=== PATIENT | male | born 1985 | race Caucasian/White ===

== ENCOUNTER 2019-05-14 09:20 | Outpatient (CLI) | payer OTHER ==
[2019-05-14 15:25] LABS: #Basophils 0.1 thou/uL (0.0-0.2); #Eosinphils 0.2 thou/uL (0.0-0.7); #Lymphocytes 2.2 thou/uL (1.20-3.40); #Monocytes 0.5 thou/uL (0.11-0.59); #Neutrophils 3.1 thou/uL (1.40-6.50); %Basophils 1.3 % (0.0-1.0); %Eosinophils 3.3 % (0.0-10.0); %Lymphocytes 36.9 % (21.0-51.0); %Monocytes 7.9 % (0.0-10.0); %Neutrophils 50.6 % (42.0-75.0); Hemoglobin 14.9 g/dL (14.0-18.0); Mean Corpuscular HGB CONC 34.1 g/dL (32.0-36.0); Mean Corpuscular Hemoglobin 30.7 pg (27.0-31.0); Mean Corpuscular Volume 90.1 fL (78.0-98.0); Platelet Count 118 thou/uL (130-400); RBC Distribution Width 11.1 % (11.5-14.5); Red Blood Cell (RBC) Count 4.86 mill/uL (4.70-6.10); White Blood Cell (WBC) Count 6.1 thou/uL (4.8-10.8)
== END 2019-05-14 09:21 | disposition home or self-care (01) ==
LOC: LABBT 09:20
PROVIDERS: ATTEND Orthopaedic Surgery Hand Surgery
DX: Z01.812 Encounter for preprocedural laboratory examination (principal); M25.331 Other instability, right wrist
CPT/HCPCS: 85025

== ENCOUNTER → 2019-05-18 | Day surgery (SDC) | payer OTHER ==
[2019-05-14 14:47] VITALS: BMI 24.3
[~2019-05-18] MED LIST: Bacitracin Zinc Ointment 30 gm TUBE ONE; Betamet Acet/Betamet Na Ph 30 MG/5 ML VIAL ONE; Bupivacaine HCl 0.5%/Epinephrine 1:200,000/PF 30 ml Vial ONE; Bupivacaine PF 0.5% 30 ML VIAL ONE; Dexamethasone 20 MG/5 ML VIAL ONE; EPINEPHrine 1 MG/ML AMP ONE; Fentanyl 100 MCG/2 ML VIAL ONE; Ketorolac Tromethamine 30 MG/ML VIAL ONE; Lidocaine 1% PF 5 ML VIAL ONE; Midazolam HCl 2 mg/2 ml Vial ONE; Ondansetron PF 4 MG/2 ML Vial ONE; PHENYLEPHRINE-NS 100 MCG/ML 10 ML SYRINGE ONE; PROPOFOL 200 MG/20 ML VIAL ONE; Scopolamine 1.5 mg/72 hour Patch ONE; Scopolamine 1.5 mg/72 hour Patch TOP SCH; Sodium Chloride 0.9% 10 ML ONE; ePHEDrine 50 MG/ML VIAL ONE
--- NOTE | 2019-05-18 17:56 | RAD ---
Exam: XR Wrist Rt 2 View HISTORY: ORIF right wrist. COMPARISON: None FINDINGS: 5 intraoperative fluoroscopic images of the right wrist are submitted for interpretation. Provided images demonstrates surgical measurements overlying the wrist with pins transfixing the carp al bones with what appears to be small screws overlying the proximal pole scaphoid bone and lunate bone. A transversely oriented metallic pin overlies the proximal pole scaphoid bone and lunate bone a s well as transversely oriented pin overlying the distal pole scaphoid bone and base of the capitate bone. There is also a more vertically oriented pin overlying the capitate and lunate bone. C orrelation with intraoperative findings is recommended. Fluoroscopy: Time-1 minute 15 seconds with a cumulative dose of 1.07 mGy IMPRESSION: No acute osseous abnormality is identified.
--- NOTE | 2019-05-19 10:15 | OP ---
DATE OF PROCEDURE: 05/18/2019 PREOPERATIVE DIAGNOSES: 1. Scapholunate interosseous membrane tear with instability, midcarpal and early dorsal intercalated instability. 2. Chondral lesion, of the scaphoid almost it is periarticular to the scapholunate articulation 5 mm long by 2 mm wide indicative of avulsion of the ligament. POSTOPERATIVE DIAGNOSES: 1. Scapholunate interosseous membrane tear with instability, midcarpal and early dorsal intercalated instability. 2. Chondral lesion, of the scaphoid almost it is periarticular to the scapholunate articulation 5 mm long by 2 mm wide indicative of avulsion of the ligament. PROCEDURES PERFORMED: 1. C-arm use. 2. Arthroscopic wrist diagnostic procedure. 3. Modified Brunelli flexor carpi radialis transfer for scapholunate ligament augmentation and scapholunate interosseous membrane reconstruction, lunate retained portion back to the scaphoid. TOURNIQUET TIME: Would be 2 hours. BLOOD LOSS: Less than 100 mL. 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 He had clinical and radiographic and MRI findings of scapholunate interosseous membrane tear which is at least 3-to 4-month-old at this point. He has failed conservative treatment. I was seen as a 2nd or 3rd opinion and as I instructed the patient both the time of visits and now preop that he will probably lose some motion and will probably be unable to perform pushups in the standard front lean rest, having to do them now on his fist with the wrist in neutral. He understood this and that there is also risk of failure. He agreed to proceed. DESCRIPTION OF PROCEDURE: The patient then had undergone general anesthesia by [facility], the limb was prepped. Time-out was done appropriately as the limb was being prepped and draped. His wrist was initially placed in an arthroscopic tower and he had standard 3/4, 6U and 6R portals established. Panoramic view revealed complete drive through the scope into the midcarpal joint where we found there was no evidence of capitate lesion, but we could see a small chondral loss that was near complete of the ulna and of the scaphoid where the scapholunate ligament was absent. There was 2 mm to 3 mm of ligament width occupying the dorsal half of the lunate, except for the very dorsal 5 mm. Here, there was a small amount of remnant still on the scaphoid. For this reason, it was felt that he needed scapholunate reconstruction and augmentation with the flexor carpi radialis tendon using a modified Valentina technique as outlined by Dr. Greer. First, we removed the arthroscope. We then exsanguinated the limb, inflated the tourniquet to 250 mmHg pressure and then using the 3/4 portal, made extended zigzag incision, carried through the skin and subcutaneous tissue. We then isolated the extensor pollicis longus, entered the junction between the 3rd and 4th dorsal compartments and sent the extensor pollicis longus radial and the 4th compartment extensors ulnarly. This exposed the capsule. We then made a capsule flap allowing us to see the joint and then taken the capsule leaving the radial based portion. Immediately underneath, we could see the tear of the scapholunate ligament with the just as seen on the scope almost 1 cm long band of the dorsal one half of the scapholunate ligament that was 3 mm wide at its widest and 2 mm at least as most narrow still on the lunate and intact while of the scaphoid and then there was a 2-to 3-mm wide strip through the dorsal aspect of scaphoid that did come off the lunate. For this reason, we prepared a trough on the scaphoid that was 2.5 mm wide, 2 mm deep and 1 cm long to accommodate this band from the lunate for reconstruction. We did the same thing on the dorsal aspect of the lunate. We also placed heavy anchors, with a suture, 2 on the scaphoid, 1 on the lunate for this reconstruction later. We used joysticks of 0.045 K-wires to get rid of the dorsal intercalated instability by palmar flexing the lunate and dorsiflexing the scaphoid. We used the same orientation to help with and then performed a drill hole from dorsal to palmar centered at the junction of the proximal and mid third of the scaphoid and then in the frontal plane, a sagittal plane coming out on the palmar aspect obliquely to allow for more correction of the scaphoid back to the lunate. We then finished drilling the hole 1st with a 2.5 drill bit over the guidewire and then a 3.5 drill bit over the guidewire and it was excellent rim of these 3 mm on either side of the tunnel. We then turned to the palmar side, made an incision down to the base of flexor carpi radialis, opened the sheath, retracted the FCR and then visualized the spot for the drilling and completed the drilling. We then had released the scaphoid capsule. Then, we made 3 incisions to harvest the flexor carpi radialis in radial half, brought it into each incision to visually maintain its width, placed a 22-gauge wire from dorsal to palmar, put a 4-0 Prolene on the end of the FCR radial half's path and brought it from palmar to dorsal onto the scaphoid. Then, we used the same joysticks to reduce along with a heavy 399.9 the scapholunate interval in 45 degrees of scapholunate angle and approximately 5 degrees capitate lunate angle. Once we had done this, we used a triangle pinning pattern of the distal portion of the scaphoid, distal to the hole for the FCR in the capitate, proximal to that hole we placed a wire into the lunate, and then from the capitate midportion into midportion of lunate, we placed a wire. Now, we had completely reduced anatomically the scapholunate interval as well as corrected all intercalated instability. At this point, we then 1st tied the sutures already had been placed in the scapholunate ligament to bring the lunate portion back into the trough with the 2 heavy anchor sutures (micro anchors, not mini) and using same the micro anchor, we used this to help realign both the flexor carpi radialis tendon, then the tendon was placed into the capsular flap and lunotriquetral ligament on the ulnar side of the lunate, cinched underneath the capitate and midcarpal ligament and then sutured at all 3 places with maximal tension. This gave nearly a guitar string type tension, which would be appropriate for healing. We then tied it on itself on the radial aspect of scapholunate ligament with a heavy 3-0 Prolene suture. We released the tourniquet and obtained hemostasis. We then brought the capsular flap back after obtaining hemostasis and repaired it without undue tension using an interrupted 3-0 Prolene. We then closed the retinaculum with an interrupted 2-0 Vicryl, before we close the capsule, closed the skin, we cut the capitate wire down with only 1 mm protruding from the bone and then cut the two other wires from the triangulation technique with 1 mm under the skin, but still palpable. We obtained hemostasis subcutaneously and closed the skin on the dorsum with a running 3-0 Monocryl and had excellent reproduction of the closure, so we then placed Steri-Strips. On the palmar side, we closed the scaphoid capsule with interrupted 2-0 Vicryl, we repaired the distal portion of the FCR sheath with the same Vicryl, subcutaneous closure of all the incisions were closed with 4-0 Monocryl in a running fashion and then we used 4-0 nylon for the epidermal closure on the forearm and Steri-Strips on the wrist. Bulky dressing was applied with a sugar-tong splint and the patient left the operating room without evidence of anesthetic or operative complication. Radiographs showed maintained anatomic position with the wires cut. Job ID: [id number]
--- NOTE | 2019-05-21 10:09 | EKG ---
Test Reason : PREOP Blood Pressure : / mmHG Vent. Rate : 068 BPM Atrial Rate : 068 BPM P-R Int : 152 ms QRS Dur : 108 ms QT Int : 446 ms P-R-T Axes : 028 095 041 degrees QTc Int : 474 ms Normal sinus rhythm Rightward axis Borderline ECG No previous ECGs available Confirmed by CY SALDANA, SHUBHAM ([id number]) on 05/21/2019 10:08:59 AM Referred By: OBINNA Confirmed By:SHUBHAM BENOIT MD
== END ==
LOC: SDC 09:10
PROVIDERS: ATTEND Orthopaedic Surgery Hand Surgery
PROC: 0RQN4ZZ Repair Right Wrist Joint, Percutaneous Endoscopic Approach (ICD-10-PCS; principal; 2019-05-18)
PROC: 3E0T3BZ Introduction of Anesthetic Agent into Peripheral Nerves and Plexi, Percutaneous Approach (ICD-10-PCS; principal; 2019-05-18)
PROC: 0LX Tendons, Transfer (ICD-10-PCS; principal; 2019-05-18)
DX: M25.331 Other instability, right wrist (principal); S63.511A Sprain of carpal joint of right wrist, initial encounter; G89.18 Other acute postprocedural pain
CPT/HCPCS: 76000; 93005; 93010; C1713; J0131; J0171; J0690; J0702; J1885; J2250; J2405; J3010; J3490; S0020

== ENCOUNTER 2019-07-12 13:51 | Day surgery (SDC) | payer OTHER ==
[2019-07-09 16:02] VITALS: BMI 26.4
[~2019-07-12 13:51] MED LIST changes: -Bacitracin Zinc Ointment 30 gm TUBE ONE; -Betamet Acet/Betamet Na Ph 30 MG/5 ML VIAL ONE; -Bupivacaine HCl 0.5%/Epinephrine 1:200,000/PF 30 ml Vial ONE; -Bupivacaine PF 0.5% 30 ML VIAL ONE; -Dexamethasone 20 MG/5 ML VIAL ONE; -EPINEPHrine 1 MG/ML AMP ONE; -Fentanyl 100 MCG/2 ML VIAL ONE; -Midazolam HCl 2 mg/2 ml Vial ONE; -PHENYLEPHRINE-NS 100 MCG/ML 10 ML SYRINGE ONE; -Scopolamine 1.5 mg/72 hour Patch ONE; -Scopolamine 1.5 mg/72 hour Patch TOP SCH; -Sodium Chloride 0.9% 10 ML ONE; -ePHEDrine 50 MG/ML VIAL ONE
[2019-07-12] MEDS ORDERED: Sodium Chloride 0.9% 0 ML ONE (15:56)
[2019-07-12] MEDS ORDERED: Thrombin 5000 UNITS/5 ML VIAL ONE (15:56)
[2019-07-12] MEDS ORDERED: Bacitracin Zinc Ointment 30 gm TUBE ONE (15:56)
[2019-07-12] MEDS ORDERED: Bupivacaine PF 0.5% 30 ML VIAL ONE (15:56)
[2019-07-12] MEDS ORDERED: Midazolam HCl 2 mg/2 ml Vial ONE (16:01)
[2019-07-12] MEDS ORDERED: Fentanyl 100 MCG/2 ML VIAL ONE ×2 (16:10→16:38)
--- NOTE | 2019-07-12 17:39 | RAD ---
RIGHT HAND TWO FLUOROSCOPIC IMAGES: Indications: Fluoroscopic imaging in OR during hardware removal. FINDINGS: These two images show tiny metallic screws overlying the scaphoid and lunate. Carpals appear normally aligned. POS: OFF
--- NOTE | 2019-07-13 01:11 | OP ---
DATE OF PROCEDURE: 07/12/2019 PREOPERATIVE DIAGNOSIS: Retained right intercarpal wires x3 (three separate wires to just separate the incisions: One, scapholunate; two, scaphocapitate; three, capitolunate. COMPLICATIONS: None. PROCEDURES PERFORMED: 1. C-arm supervision. 2. Removal of deep implants x3 (each wire, separate incision at the separate joints as listed above). SPECIMEN REMOVED: The three K-wires, remnants. BLOOD LOSS: 5 cc was blood loss. TOURNIQUET TIME: 11 minutes. FINDINGS: Findings on the C-arm were all wires out. No scapholunate gapping and no excessive dorsal intercalated instability. DESCRIPTION OF PROCEDURE: After successful general endotracheal anesthesia, the limb was prepped and draped. The patient had 10 cc of 0.5% Marcaine divided equally amongst the three possible pin sites identified with the C-arm. We then exsanguinated the limb, inflated tourniquet to 250 mmHg pressure. We made a 3 mm incision just distal to the radial styloid to remove the scapholunate wire. We made an incision 8 mm distal to this also just 2-3 mm long, dissected down to the pin through the scaphocapitate and removed it. There was no tendon laceration injury or fraying seen. We then used the C-arm to identify frontal sagittal plane the capitolunate K-wire. It was approximately 6 mm to 8 mm below the skin, used a 1 cm portion of the arm of the previous incision, carried through skin and subcutaneous tissue until we dissected deep to the tendons, located the capsule, made a small hole in the capsule where the wire could be now visualized and removed it within the large . We irrigated all sites, released the tourniquet, reinforced with additional 5 cc of 0.5% Marcaine local infiltrated block without epinephrine. We then obtained hemostasis and closed the incision with interrupted 4-0 nylon in a simple pattern. Bulky dressing was applied along with a small splint and the patient left the operating room without evidence of anesthetic or operative complication. Job ID: [id number]
== END 2019-07-12 19:00 | disposition home or self-care (01) ==
LOC: SDC 13:51
PROVIDERS: ATTEND Orthopaedic Surgery Hand Surgery
PROC: 0LPX0JZ Removal of Synthetic Substitute from Upper Tendon, Open Approach (ICD-10-PCS; principal; 2019-07-12)
DX: T84.84XA Pain due to internal orthopedic prosthetic devices, implants and grafts, initial encounter (principal); M25.331 Other instability, right wrist
CPT/HCPCS: 76000; J0690; J1885; J2001; J2250; J2405; J2704; J3010; J3490; S0020